=== PATIENT | female | born 1975 | race African-American/Black ===

== ENCOUNTER 2024-06-09 12:07 | Emergency (ER) | payer SELFPAY ==
[~2024-06-09] VITALS: Ht 170.2 cm; Wt 81.6 kg
[2024-06-09 12:13] VITALS: BP 142/90; PULSE 87; RESP 18; TEMP 98.3; O2SAT 97
[2024-06-09 12:15] VITALS: TEMP 98.3
[2024-06-09] MEDS: FAMOTIDINE 20 MG/2 ML VIAL IVP ONE (13:20)
[2024-06-09] MEDS: NACL 0.9% 1,000 ML IV SCH (13:21)
[2024-06-09] MEDS: ONDANSETRON 4 MG/2 ML VIAL IVP ONE (13:21)
[2024-06-09 14:29] LABS: BASOPHILS % (AUTO) 0.6 % (0.0-2.0); EOSINOPHILS % (AUTO) 0.6 % (0.0-4.0); HEMOGLOBIN 11.7 g/dL (12.0-16.0); LYMPHOCYTES # (AUTO) 1.6 K/uL (2.5-16.5); LYMPHOCYTES % (AUTO) 20.9 % (20.5-51.1); MEAN CORPUSCULAR HEMOGLOBIN 25 pg (27-31); MEAN CORPUSCULAR HGB CONC 32 g/dL (33-37); MEAN CORPUSCULAR VOLUME 79.4 fL (80-94); MONOCYTES # (AUTO) 0.5 K/uL (0.8-1.0); MONOCYTES % (AUTO) 5.9 % (1.7-9.3); NEUTROPHILS # (AUTO) 5.5 K/uL (1.8-7.7); PLATELET COUNT (AUTO) 360 K/uL (140-450); RED BLOOD CELL COUNT(AUTO) 4.67 MIL/uL (4.20-5.40); RED CELL DISTRIBUTION WIDTH 15.9 % (11.6-13.7); WHITE BLOOD COUNT (AUTO) 7.6 K/uL (4.8-10.8)
[2024-06-09 14:31] LABS: BILIRUBIN,URINE NEGATIVE (NEGATIVE); BLOOD, URINE NEGATIVE (NEGATIVE); COLOR,URINE YELLOW (YELLOW); LEUKOCYTE ESTERASE ,URINE TRACE (NEGATIVE); NITRITE, URINE NEGATIVE (NEGATIVE); PROTEIN,URINE NEGATIVE (NEGATIVE); UGLUCOSE NEGATIVE (NEGATIVE); UROBILINOGEN,URINE 0.2 EU/dL (0.2 - 1)
[2024-06-09 14:34] LABS: APPEARANCE,URINE SLIGHTLY HAZY (CLEAR)
[2024-06-09 14:38] LABS: BACTERIA,URINE 1+ /HPF (None Seen); MUCUS,URINE None Seen /LPF (None Seen); RBC,URINE 0-5 /HPF (0-5); SQUAMOUS EPITHELIAL CELL,UR 0-3 (FEW) /LPF (0-3 (FEW)); WBC,URINE 0-5 /HPF (0-5)
[2024-06-09 14:48] LABS: ANION GAP 13.7 (8-16); CALCIUM 9.3 mg/dL (8.5-10.1); CARBON DIOXIDE 24.3 mmol/L (21-32); CREATININE 0.8 mg/dL (0.6-1.3)
[2024-06-09 14:50] LABS: ALBUMIN 3.8 g/dL (3.4-5.0); BILIRUBIN,DIRECT 0.1 mg/dL (0.0-0.3); TOTAL BILIRUBIN 0.5 mg/dL (0.0-1.0); TOTAL PROTEIN, SERUM 8.2 g/dL (6.4-8.2)
[2024-06-09] MEDS ORDERED: ONDA-188 PO (14:57)
[2024-06-09] MEDS ORDERED: FAMO-92 PO (14:57)
[2024-06-09 15:13] VITALS: BP 120/87; PULSE 67; RESP 16; O2SAT 98
== END 2024-06-09 15:13 | disposition home or self-care (01) ==
LOC: MED 12:07
DX: R10.32 Left lower quadrant pain (principal); R10.30 Lower abdominal pain, unspecified; R11.10 Vomiting, unspecified; R19.7 Diarrhea, unspecified; Z98.890 Other specified postprocedural states; Z79.899 Other long term (current) drug therapy
CPT/HCPCS: 36415; 80048; 80076; 81001; 81025; 83690; 85025; 96361; 96374; 96375; 99284; J2405; J3490; J7030